=== PATIENT | female | born 1995 | race Asian ===

== ENCOUNTER 2019-08-02 10:13 | Emergency (ER) | payer OTHER ==
[~2019-08-02] VITALS: Ht 160 cm; Wt 86.4 kg
[2019-08-02] MEDS ORDERED: IBUP-1506 PO (10:29)
[2019-08-02] MEDS ORDERED: OSEL75 PO (10:29)
[2019-08-02 13:22] VITALS: BP 143/75
== END 2019-08-02 13:37 | disposition home or self-care (01) ==
LOC: EMS 10:16
DX: J02.9 Acute pharyngitis, unspecified (principal)